=== PATIENT | male | born 1950 | race Two or more races ===

== ENCOUNTER → 2016-11-18 | Outpatient (CLI) | payer BC ==
--- NOTE | 2016-11-18 17:08 | RADRPT ---
PROCEDURE: Left knee radiographs. CLINICAL INDICATION: Left knee pain. TECHNIQUE: Four views. Weight bearing. Frontal, lateral, oblique, and patellar view. COMPARISON: No prior studies are available for comparison. FINDINGS: There is no fracture or dislocation. The soft tissues are normal. There are degenerative changes with osteophytes arising from all 3 joint compartment margins. There is no lytic or blastic lesion. There is no radiopaque foreign body. IMPRESSION: 1. 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 2. No acute abnormality. RPTAT: QQ .Sergio Miller MD, MD Date Time Electronically viewed and signed by .Sergio Miller MD, MD on 11/18/2016 17:07 .R/
== END | disposition home or self-care (01) ==
LOC: HKI 08:48
PROVIDERS: ATTEND Orthopaedic Surgery
DX: M76.32 Iliotibial band syndrome, left leg (principal); M63.85 Disorders of muscle in diseases classified elsewhere, thigh; M25.562 Pain in left knee
CPT/HCPCS: 73564; G0463